=== PATIENT | female | born 1985 | race African-American/Black ===

== ENCOUNTER → 2021-05-06 | Outpatient (CLI) | payer OTHER ==
--- NOTE | 2021-05-06 10:42 | RAD ---
EXAM: Pelvic sonogram. HISTORY: Menorrhagia. Vaginitis. TECHNIQUE: Transabdominal and transvaginal sonographic imaging of the pelvis was performed. COMPARISON: None. FINDINGS: The uterus measures 9.6 x 6.1 x 6.6 cm. There is a fibroid within the posterior uterine fun dus measuring 4.2 x 4.0 x 3.8 cm. There is an IUD within the endometrial cavity. This partially obscu res the endometrium. There is no evidence of thickening of the endometrial stripe. The ovaries are no rmal in size and demonstrate normal blood flow. There are nabothian cysts within the cervix. There is a small amount of pelvic free fluid. IMPRESSION: 1. 4.2 cm uterine fibroid. 2. IUD within the endometrial cavity. There is no convincing thickening of the endometrial stripe. 3. Nabothian cysts within the cervix. 3. Small amount of pelvic free fluid, within physiologic limits for a premenopausal female. Electronically signed by: Norma Harry MD (05/06/2021 10:39 AM) [id number]
== END ==
LOC: US 09:46
PROVIDERS: ATTEND Obstetrics & Gynecology
DX: D25.9 Leiomyoma of uterus, unspecified (principal); N88.8 Other specified noninflammatory disorders of cervix uteri; R63.5 Abnormal weight gain; N92.0 Excessive and frequent menstruation with regular cycle; E34.9 Endocrine disorder, unspecified
CPT/HCPCS: 76830; 76856